=== PATIENT | female | born 1945 | race Caucasian/White ===

== ENCOUNTER → 2016-12-22 | Outpatient (CLI) | payer MEDICARE ==
[~2016-12-22] MED LIST: AMIO200T PO; AMLO10TA2 PO; ATEN50TA2 PO; DIGO0.12 PO; ELIQ5TAB PO; FURO20TA2 PO; FURO40TA2 PO; LASI20TA PO; LATA5OPD OU; LISI-542 PO; LOPR1TAB7 PO; LOTR10CA PO; OMEP20CA3 PO; POTA10CA PO; PRAV40TA2 PO; SIMV20TA2 PO; VITA100072 PO; VITMTA PO
--- NOTE | 2016-12-22 12:05 | REPMRS ---
Patient History The patient states she has not had a clinical breast exam in over a year. Family history of breast cancer in paternal cousin under age 50. Took hormonal contraceptives for 5 years. Digital Woman Screen Mammo: December 22, 2016 - Exam #: [id number] Bilateral CC and MLO view(s) were taken. Technologist: Mariangel Suggs, Technologist Prior study comparison: November 22, 2015, digital woman screen mammo performed at [facility] to [facility]. November 16, 2014, digital woman screen mammo performed at [facility] to [facility]. FINDINGS: There are scattered fibroglandular densities. There has been no change in the appearance of the mammogram from the prior studies. There is a mild amount of residual fibroglandular tissue which is fairly symmetric. There is no interval development of dominant mass, architectural distortion, or clustered microcalcification suggestive of malignancy. ASSESSMENT: BI-RADS/ACR category 1 mammogram. Negative. Recommendation Routine screening mammogram in 1 year (for women over age 40). This mammogram was interpreted with the aid of an FDA-approved computer-aided dectection system. Electronically Signed By: Jovan Morillo MD 12/22/16 [id number]
== END ==
LOC: M WHC 10:13
PROVIDERS: ATTEND Physician Assistant
DX: Z12.31 Encounter for screening mammogram for malignant neoplasm of breast (principal)

== ENCOUNTER 2017-01-02 06:29 | Day surgery (SDC) | payer MEDICARE ==
[~2017-01-02] VITALS: Ht 167.6 cm; Wt 64.4 kg
[2017-01-02] MEDS ORDERED: LR 1,000 ML IV SCH (06:45)
[2017-01-02] MEDS ORDERED: LIDOCAINE 2% INJ 100 MG/5 ML SDV (FOR ANES.) As Ordered ONE (07:19)
[2017-01-02] MEDS ORDERED: PROPOFOL 200 MG/20 ML VIAL As Ordered ONE (07:19)
[2017-01-02] MEDS ORDERED: LIDOCAINE 2% INJ 100 MG/5 ML SYRINGE As Ordered ONE (10:06)
[2017-01-02] MEDS ORDERED: PROPOFOL 500 MG/50 ML VIAL As Ordered ONE (10:06)
[2017-01-02] MEDS ORDERED: ePHEDrine SULFATE 25 MG/5 ML(5MG/ML) SYRINGE As Ordered ONE (10:23)
--- NOTE | 2017-01-02 10:31 | ROOR ---
Patient Name: Maria Antonia Gonzalez Procedure Date: 01/02/2017 9:58 AM Date of : 1945 Age: 71 Room: [facility] Gender: Female Note Status: Finalized Procedure: Colonoscopy Indications: Screening for colorectal malignant neoplasm, Last colonoscopy 10 years ago Providers: Rolly Aldana MD Referring MD: Elena GIEMNEZ DO Requesting Provider: Medicines: Monitored Anesthesia Care Complications: No immediate complications. Procedure: Pre-Anesthesia Assessment: - Prior to the procedure, a History and Physical was performed, and patient medications and allergies were reviewed. The patient is competent. The risks and benefits of the procedure and the sedation options and risks were discussed with the patient. All questions were answered and informed consent was obtained. Patient identification and proposed procedure were verified by the physician, the nurse and the anesthesiologist in the procedure room. Mental Status Examination: alert and oriented. Airway Examination: normal oropharyngeal airway and neck mobility. CV Examination: regular rate and rhythm. Prophylactic Antibiotics: The patient does not require prophylactic antibiotics. Prior Anticoagulants: The patient has taken no previous anticoagulant or antiplatelet agents. ASA Grade Assessment: III - A patient with severe systemic disease. After reviewing the risks and benefits, the patient was deemed in satisfactory condition to undergo the procedure. The anesthesia plan was to use monitored anesthesia care (MAC). Immediately prior to administration of medications, the patient was re-assessed for adequacy to receive sedatives. The heart rate, respiratory rate, oxygen saturations, blood pressure, adequacy of pulmonary ventilation, and response to care were monitored throughout the procedure. The physical status of the patient was re-assessed after the procedure. The Colonoscope was introduced through the anus and advanced to the cecum, identified by appendiceal orifice and ileocecal valve. The colonoscopy was performed without difficulty. The patient tolerated the procedure well. The quality of the bowel preparation was excellent. Findings: The perianal and digital rectal examinations were normal. A 4 mm polyp was found in the hepatic flexure. The polyp was sessile. The polyp was removed with a cold snare. Resection and retrieval were complete. A 3 mm polyp was found in the rectum. The polyp was sessile. The polyp was removed with a cold snare. Resection and retrieval were complete. Impression: - One 4 mm polyp at the hepatic flexure, removed with a cold snare. Resected and retrieved. - One 3 mm polyp in the rectum, removed with a cold snare. Resected and retrieved. Recommendation: - Await pathology results. - Discharge patient to home. - Resume previous diet. - Resume Eliquis (apixaban) at prior dose tomorrow. Rolly Aldana MD 01/02/2017 10:30:56 AM Number of Addenda: 0 Note Initiated On: 01/02/2017 9:58 AM Estimated Blood Loss: Estimated blood loss: none.
[2017-01-02 10:51] VITALS: BP 118/54
== END 2017-01-02 11:18 | disposition home or self-care (01) ==
LOC: M OPP 06:29
PROVIDERS: ATTEND Surgery
DX: Z12.11 Encounter for screening for malignant neoplasm of colon (principal); D12.3 Benign neoplasm of transverse colon; K62.1 Rectal polyp; I10 Essential (primary) hypertension; E78.00 Pure hypercholesterolemia, unspecified; I48.91 Unspecified atrial fibrillation; K21.9 Gastro-esophageal reflux disease without esophagitis; Z79.01 Long term (current) use of anticoagulants; Z79.899 Other long term (current) drug therapy

== ENCOUNTER → 2018-01-02 | Outpatient (CLI) | payer MEDICARE | LOC: M WHC 09:34 | DX: R92.2 Inconclusive mammogram (principal) | CPT/HCPCS: 77067 ==

== ENCOUNTER → 2018-01-25 | Outpatient (CLI) | payer MEDICARE | LOC: M RAD 12:45 | DX: R92.8 Other abnormal and inconclusive findings on diagnostic imaging of breast (principal) | CPT/HCPCS: 77065 ==

== ENCOUNTER → 2018-02-15 | Outpatient (CLI) | payer MEDICARE ==
[~2018-02-15] MED LIST changes: +ALPH0.156 OU; -AMLO10TA2 PO; +AMLO10TA5 PO; +ASCO25TA PO; +FLEC50HA PO; +KLOR10TA76 PO; -LASI20TA PO; +LASI20TA3 PO; +LIDOCAINE 1% MDV 20ML VIAL As Ordered ONE; +METO25TA4 PO; -POTA10CA PO; +VITA200015 PO; +XALA0.007 OU
--- NOTE | 2018-02-15 13:27 | REP ---
Digital diagnostic unilateral left breast mammography: CAD. Two views. History: Marker clip placement views. The patient is status post stereotactic needle biopsy procedure. Comparison mammography January 02, 2018 and January 25, 2018. Findings: CC and true MLO views demonstrate that the needle biopsy marker clip is in good position. Impression: Marker clip in good position. This mammogram was interpreted with the aid of an FDA-approved computer-aided detection system. Electronically Signed by Pa Roblero MD 02/15/2018 04:55 P
--- NOTE | 2018-02-15 17:13 | REP ---
STEREOTACTIC LEFT BREAST BIOPSY The procedure was performed under the direct supervision of Dr. Roblero The patient has a history of 6 x 5 mm nodule in the left breast centrally seen on a previous mammogram dated 01/25/2018. The risks and benefits of the procedure were explained to the patient and informed consent was obtained. A craniocaudal approach was utilized. The nodule was localized using stereotactic mammographic guidance. 1% Xylocaine was used as a local anesthetic. An 8 gauge, suction assisted Mammotome needle was inserted and 6 core biopsy samples were obtained. A marker clip was placed at the biopsy site. The patient tolerated the procedure well and there were no immediate complications. After the appropriate amount of monitored convalescence, the patient was discharged from the department. Reviewed by FRIDA Fagan 02/15/2018 03:27 P Electronically Signed by Pa Roblero MD 02/15/2018 05:04 P
== END ==
LOC: M RADPRO 11:28
PROVIDERS: ATTEND Surgery
DX: N60.32 Fibrosclerosis of left breast (principal); N64.89 Other specified disorders of breast; Z79.899 Other long term (current) drug therapy

== ENCOUNTER 2018-04-02 11:13 | Day surgery (SDC) | payer MEDICARE ==
[~2018-04-02] VITALS: Ht 162.6 cm; Wt 64.1 kg
[~2018-04-02 11:13] MED LIST changes: -ASCO25TA PO; -LIDOCAINE 1% MDV 20ML VIAL As Ordered ONE
[2018-04-02] MEDS ORDERED: LR 1,000 ML IV ONE (11:30)
[2018-04-02] MEDS ORDERED: ceFAZolin SOD 1 GM in D5W MINI-BAG PLUS 50 ML IV ONE (11:30)
[2018-04-02] MEDS ORDERED: MUPIROCIN 2% OINT 22 GM TUBE As Ordered ONE ×2 (13:15→13:18)
[2018-04-02] MEDS ORDERED: ISOVUE-300 61% 50ML VIAL (Q9967) As Ordered ONE (13:16)
[2018-04-02] MEDS ORDERED: BACITRACIN OINT 30GM As Ordered ONE (13:16)
[2018-04-02] MEDS ORDERED: LIDOCAINE 1% SDV INJ 30 ML VIAL As Ordered ONE (13:16)
[2018-04-02 13:32] LABS: ALBUMIN 3.6 GM/DL (3.2-5.2); ALT/SGPT 22 U/L (12-78); BILIRUBIN,TOTAL 0.7 MG/DL (0.2-1.0); BLOOD UREA NITROGEN 29 MG/DL (7-18); CARBON DIOXIDE LEVEL 28 MEQ/L (21-32); CHLORIDE LEVEL 107 MEQ/L (98-107); CREATININE FOR GFR 0.81 MG/DL (0.55-1.30); GLOMERULAR FILTRATION RATE > 60.0 (>39); GLUCOSE, FASTING 106 MG/DL (70-100); POTASSIUM SERUM 4.8 MEQ/L (3.5-5.1); SODIUM LEVEL 141 MEQ/L (136-145); TOTAL PROTEIN 6.6 GM/DL (6.4-8.2)
[2018-04-02] MEDS ORDERED: MIDAZOLAM INJ 2 MG/2 ML VIAL (J2250) As Ordered ONE (14:18)
[2018-04-02] MEDS ORDERED: fentaNYL 100 MCG/2 ML INJECTION (J3010) As Ordered ONE (14:18)
[2018-04-02] MEDS ORDERED: PROPOFOL 500 MG/50 ML VIAL As Ordered ONE (14:18)
[2018-04-02] MEDS ORDERED: ePHEDrine SULFATE 25 MG/5 ML(5MG/ML) SYRINGE As Ordered ONE (14:23)
[2018-04-02] MEDS ORDERED: NEOSPORIN TOP OINT 15GM As Ordered ONE (15:41)
[2018-04-02] MEDS ORDERED: LR 1,000 ML IV SCH (16:30)
--- NOTE | 2018-04-02 16:40 | REP ---
Partial chest x-ray: 11 views. History: Pacemaker insertion. 4 minutes 58 seconds of fluoroscopy time is reported. Findings: A sequence of 11 last image hold fluoroscopic spot radiographs of the chest document dual lead pacemaker placement. Electronically Signed by Pa Roblero MD 04/02/2018 08:41 P
--- NOTE | 2018-04-02 16:42 | RO ---
DATE OF PROCEDURE: 04/02/2018 PREPROCEDURE DIAGNOSIS: Sick sinus syndrome/tachycardia-bradycardia syndrome. POSTPROCEDURE DIAGNOSIS: Sick sinus syndrome/tachycardia-bradycardia syndrome. FINDINGS: Sick sinus syndrome/tachycardia-bradycardia syndrome. PROCEDURE: Implantation of Medtronic dual-chamber pacemaker. SURGEON: Adrian Urena MD BUILDING CLEANER: None. ANESTHESIA: Lidocaine 1% local/monitored anesthetic care. No specimens. Estimated blood loss: Less than 5 mL. No blood products replaced. No drains. No complications. DESCRIPTION OF PROCEDURE: The patient was prepped and draped over the left pectoral region. 3M Ioban film was applied. Lidocaine 1% was used for local anesthetic. A left subclavian venogram was performed using a total volume of 20 mL of a mixture of 5:1 Isovue/normal saline, which was injected via a peripheral vein in the left upper vein. This was used in real-time under fluoroscopic visualization to obtain percutaneous venous access with a micropuncture needle into the left subclavian vein. This was then guidewire exchanged for a guidewire that came with one of the 7-Malagasy sheaths. Next, an incision was made with a PEAK PlasmaBlade approximately 2-1/2 inches in length, 1 cm below the skin entry site of the guidewire. This was then used to dissect down through the fatty layer and the fibrous Waleska's fascia. The pacemaker pocket was then formed in a caudal direction using blunt dissection using two fingers to separate the prepectoral fascia from the Waleska's fascia. Next, the guidewire was pulled through the skin into the incision site. Next, I took a separate micropuncture needle and obtained venous access using the first guidewire as a fluoroscopic marker to obtain a separate venipuncture into the left subclavian vein at the level of the pectoral muscle. This was guidewire exchanged for a guidewire that came with the other 7-Malagasy sheath. Next, the 7-Malagasy sheath with introducer was placed over the more lateral of the guidewires and was used for vein access for the right ventricle lead, which was placed under fluoroscopic guidance into the right ventricle apex position. The first position tried with the helix extended in the right ventricle apex position was working adequately but had a low lead impedance of around 300 ohms, and, therefore, I was concerned about how well the lead was fixated. I, therefore, made the decision to retract the helix and try a different spot at the right ventricle apex, which was successful and secured with a total of 10 turns. This position was anatomically and electrically satisfactory and no diaphragm stimulation could be palpated on either side of the diaphragm at 10 volts high output pacing. The sheath was removed, and the tie-down sleeve was advanced to the pectoral muscle, and the lead was secured using two individual sutures to secure the tie-down sleeve to the pectoral muscle using #0 Ethibond suture material. Next, another 7-Malagasy sheath with introducer was placed over the more medial of the guidewires and was used for vein access for the right atrial lead. The right atrial lead was placed into the right atrial appendage position with the assistance of a preformed J-stylet and secured with a total of 10 turns. This position was found to electrically and anatomically satisfactory and no diaphragm stimulation could be palpated on either side of the diaphragm at 10 volts high output pacing. The sheath was removed, and the atrial lead was secured to the pectoral muscle using the supplied tie-down sleeve using two individual sutures consisting of #0 Ethibond. Next, another #0 Ethibond suture was used to the pectoral muscle to serve as the tie-down for the pacemaker pulse generator. The terminal pins of the ventricle and atrial leads were plugged into their respective ports of the header of the pacemaker and each one was secured by tightening the set screws with the hex screwdriver. The excess lead material was then coiled underneath the pacemaker pulse generator and placed along with the pacemaker pulse generator into the pocket with the excess lead material below and pacemaker pulse generator on top. The pacemaker pulse generator was then secured to the pectoral muscle using the previously placed #0 Ethibond suture. The deep layer was closed using individual sutures consisting of #2-0 Vicryl. A few additional #3-0 Vicryl sutures were used to help approximate the more superficial layer. The skin was then closed using becky. The patient tolerated the procedure well without any immediate complications. The pacemaker pulse generator implanted was a [employer] Jennifer XT DR DANUTA Canchola with model W1DR01 with serial number [id number]. The right atrial lead implanted was a Medtronic model 4076-45 with serial number [id number]. Final testing in the operating room for the right atrial lead in bipolar configuration showed a capture threshold of 0.7 volts at 0.5 ms with lead impedance of 551 ohms and R wave amplitude of 4.5 mV and slew rate of 0.8 volts per second. The right ventricle lead implanted was a [employer], model 4076-52 cm with serial number [id number]. Final testing in the operating room with the pulse analyzer in bipolar configuration for the right ventricle lead showed capture threshold of 0.3 volts at 0.5 milliseconds with lead impedance of 707 ohms and R wave amplitude of 5.7 mV and slew rate of 1.7 volts per second.
[2018-04-02 16:55] VITALS: BP 124/68
--- NOTE | 2018-04-02 16:58 | REP ---
Chest one-view HISTORY: Post pacemaker insertion Comparison: 07/29/2015 The lungs are clear. The heart is normal in size. The pulmonary vasculature is normal in appearance. A cardiac pacemaker is present. Impression: No acute disease. Electronically Signed by Cash Skinner MD 04/02/2018 04:50 P
[2018-04-02 17:25] VITALS: BP 154/78
[2018-04-02] MEDS ORDERED: SLF 3 ML SYR IV PRN (17:30)
[2018-04-02 17:54] VITALS: BP 125/90
[2018-04-02 18:55] VITALS: BP 148/72
[2018-04-02 19:55] VITALS: BP 135/62
[2018-04-02 21:00] VITALS: BP 144/70
[2018-04-02] MEDS ORDERED: LATANOPROST 0.005% OPHTH SOLN 2.5 ML OU SCH (21:00)
[2018-04-02] MEDS ORDERED: PRAVASTATIN 20 MG TAB PO SCH (21:00)
[2018-04-02] MEDS: ACETAMINOPHEN TAB 650MG DOSE (2X325MG) PO PRN (21:10)
[2018-04-02] MEDS: METOPROLOL TART 25 MG TABLET PO SCH (21:11)
[2018-04-02] MEDS: FLECAINIDE 50MG TABLET PO SCH (21:11)
[2018-04-02] MEDS: ASCORBIC ACID 250 MG TAB PO SCH (21:11)
[2018-04-02] MEDS: SLF 3 ML SYR IV SCH (21:11)
[2018-04-02] MEDS: BRIMONIDINE 0.1% OPHTH SOLN 5 ML OU SCH (21:45)
[2018-04-03] VITALS: BP 147/72
[2018-04-03] MEDS: ACETAMINOPHEN TAB 650MG DOSE (2X325MG) PO PRN ×2 (01:00→05:35)
[2018-04-03 04:00] VITALS: BP 162/80
[2018-04-03] MEDS: SLF 3 ML SYR IV SCH (05:07)
[2018-04-03 08:00] VITALS: BP 158/78
--- NOTE | 2018-04-03 08:39 | ECGEPIP ---
Stationary ECG Study [facility] Test Date: 2018-04-02 Pat Name: MEMO ALEXANDER Department: Room: - Gender: F Tromper: SIMEON : 1945 Requested By: Adrian Urena Order Number: [id number] Reading MD: Inderjit Lee Measurements Intervals [place] Rate: 73 P: 121 MT: 223 QRS: 38 QRSD: 97 T: 51 QT: 410 QTc: 453 Interpretive Statements ELECTRONIC ATRIAL PACEMAKER INCOMPLETE RIGHT BUNDLE BRANCH BLOCK ABNORMAL RHYTHM ECG SINCE 08/03/15 PATIENT IS NO LONGER IN ATRIAL FINBRILLATION AND EVIDENCE FOR PACEMAKER IS NEW Electronically Signed On 04-03-2018 8:39:13 EST by Inderjit Lee
--- NOTE | 2018-04-03 08:43 | REP ---
Chest two views HISTORY: Pacemaker insertion Comparison: 04/02/2018 Linear density is present in the left lower lobe consistent with atelectasis or scar. The right lung is clear. The heart is normal in size. The pulmonary vasculature is normal in appearance. The bony structure is intact. A cardiac pacemaker is present. IMPRESSION: Left lower lobe atelectasis or scar. Electronically Signed by Cash Skinner MD 04/03/2018 08:34 A
[2018-04-03] MEDS ORDERED: LISINOPRIL 5 MG TAB PO SCH (09:00)
[2018-04-03] MEDS ORDERED: FUROSEMIDE 20 MG TAB PO SCH (09:00)
[2018-04-03] MEDS ORDERED: VITAMIN D 1,000 INTERNATIONAL UNITS TABLET PO SCH (09:00)
[2018-04-03 09:07] VITALS: BP 158/78
[2018-04-03] MEDS: ASCORBIC ACID 250 MG TAB PO SCH (09:07)
[2018-04-03] MEDS: METOPROLOL TART 25 MG TABLET PO SCH (09:08)
[2018-04-03] MEDS: BRIMONIDINE 0.1% OPHTH SOLN 5 ML OU SCH (09:08)
[2018-04-03] MEDS: FLECAINIDE 50MG TABLET PO SCH (09:15)
[2018-04-03 11:47] VITALS: BP 134/73
[2018-04-03] MEDS ORDERED: ASCO25TA PO (14:21)
[2018-04-03] MEDS ORDERED: APIXABAN 5 MG TAB (ELIQUIS) PO SCH (21:00)
[2018-04-04] MEDS ORDERED: FLUBLOK(EGG FREE)(QUAD)INFLUENZA VACC 0.5ML SYRINGE (90682)18YRS&OLDER IM ONE (09:00)
== END 2018-04-03 15:30 | disposition home or self-care (01) ==
LOC: M SDC 11:13 → M PCU 16:54 → M SDC 04-03 15:30
PROVIDERS: ATTEND Internal Medicine Cardiovascular Disease
DX: I49.5 Sick sinus syndrome (principal); I48.0 Paroxysmal atrial fibrillation; R94.31 Abnormal electrocardiogram [ECG] [EKG]; K21.9 Gastro-esophageal reflux disease without esophagitis; Z79.899 Other long term (current) drug therapy; Z79.01 Long term (current) use of anticoagulants; Z98.51 Tubal ligation status; Z90.710 Acquired absence of both cervix and uterus
CPT/HCPCS: 33208; 36415; 71045; 71046; 76000; 80053; 93005; C1785; C1898; J0690; J2250; J3010; Q9967

== ENCOUNTER → 2018-04-26 | Outpatient (CLI) | payer MEDICARE ==
[~2018-04-26] MED LIST changes: +ASCO25TA PO
--- NOTE | 2018-04-29 13:39 | DEXA ---
AP SPINE L1 - L4 1.320 1.0 2.8 LT FEMUR TOTAL 0.948 -0.5 1.2 LT NECK 0.958 -0.6 1.3 RT FEMUR TOTAL 0.891 -0.9 2.8 RT NECK 0.913 -0.9 1.0 TOTAL BODY TOTAL OTHER COMMENTS: Normal bone densitometry of the spine and hips. The density of the spine has increased 1.2% since the initial exam on 08/25/2008. The spine density has increased 1.4% since the most recent exam on 10/30/2012. The density of the left hip has decreased 3.5% since the initial exam on 08/25/2008. The density of the left hip has decreased 4.8% since the most recent exam on 10/30/2012. The density of the right hip has decreased 5.3% since the initial exam on 08/25/2008. The density of the right hip has decreased 7.0% since the most recent exam on 10/30/2012. FOLLOW-UP: Recommendation for the next bone density exam: 5 years. GILSON
== END ==
LOC: M WHC 09:09
PROVIDERS: ATTEND Physician Assistant
DX: M85.88 Other specified disorders of bone density and structure, other site (principal); M85.851 Other specified disorders of bone density and structure, right thigh; M85.852 Other specified disorders of bone density and structure, left thigh

== ENCOUNTER → 2018-12-27 | Outpatient (REF) | payer MEDICARE ==
[~2018-12-27] MED LIST changes: -ASCO25TA PO; +LATA0.0013 OU; -LATA5OPD OU; -OMEP20CA3 PO; +OMEP20CA4 PO; +VITA100018 PO; -VITA100072 PO; +VITA1TAB23 PO
== END ==
LOC: M LAB REF 10:26
PROVIDERS: ATTEND Family Medicine
DX: L02.212 Cutaneous abscess of back [any part, except buttock and flank] (principal)

== ENCOUNTER → 2020-04-30 | Outpatient (CLI) | payer MEDICARE ==
[~2020-04-30] MED LIST changes: -AMIO200T PO; +AMIO200T3 PO; -AMLO10TA5 PO; +AMLO1TAB25 PO; +ASCO250T20 PO; -LISI-542 PO; +LISI-898 PO; +OMEP1CAP73 PO; -OMEP20CA4 PO; -SIMV20TA2 PO; +SIMV20TA22 PO; -VITA1TAB23 PO
--- NOTE | 2020-04-30 10:55 | REPMRS ---
Patient History The patient states she has not had a clinical breast exam in over a year. Family history of breast cancer under age 50 in paternal cousin. Benign stereotatic loc for ea lesion of the left breast, February 15, 2018. Took hormonal contraceptives for 5 years. 3D TOMOSYNTHESIS WAS PERFORMED. The Anais Foster lifetime risk for breast cancer is 3.8%. Volpara breast density b. Digital Woman Screen Mammo: April 30, 2020 - Exam #: [id number] Bilateral CC and MLO view(s) were taken. Technologist: Mariangel Suggs, Technologist Prior study comparison: January 25, 2018, left breast digital mammo diagnostic unilateral, performed at [facility]. January 02, 2018, bilateral digital woman screen mammo performed at [facility]. FINDINGS: There are scattered fibroglandular densities. There is a fairly symmetric fibroglandular pattern in both breasts. There has been no interval development of masses, areas of architectural distortion or clusters of microcalcifications typical of malignancy. Since the prior exam the patient has had a benign biopsy in the lateral left breast. A biopsy clip is seen at the site of the prior nodule. Assessment: BI-RADS/ACR category 2 mammogram. Benign Findings. Recommendation Routine screening mammogram of both breasts in 1 year (for women over age 40). This mammogram was interpreted with the aid of an FDA-approved computer-aided dectection system. Electronically Signed By: Jovan Morillo MD 04/30/20 0432
== END ==
LOC: M WHC 09:48
PROVIDERS: ATTEND Family Medicine
DX: Z12.31 Encounter for screening mammogram for malignant neoplasm of breast (principal)

== ENCOUNTER → 2021-03-18 | Outpatient (CLI) | payer MEDICARE ==
[~2021-03-18] MED LIST changes: -AMIO200T3 PO; +AMIO200T49 PO; -KLOR10TA76 PO; -LISI-898 PO; +LISI5TAB11 PO; +POTA-136 PO
== END ==
LOC: M RAD 10:33
PROVIDERS: ATTEND Nurse Practitioner Family
DX: I65.23 Occlusion and stenosis of bilateral carotid arteries (principal)

== ENCOUNTER → 2021-05-24 | Outpatient (CLI) | payer MEDICARE ==
[~2021-05-24] MED LIST changes: +ISOVUE-370 76% 100ML VIAL As Ordered ONE
== END ==
LOC: M RAD 14:07
PROVIDERS: ATTEND Nurse Practitioner Adult Health
DX: R22.1 Localized swelling, mass and lump, neck (principal)
CPT/HCPCS: 70491; Q9967

== ENCOUNTER → 2021-06-17 | Outpatient (CLI) | payer MEDICARE ==
[~2021-06-17] MED LIST changes: -ISOVUE-370 76% 100ML VIAL As Ordered ONE
== END ==
LOC: M WHC 08:02
PROVIDERS: ATTEND Nurse Practitioner Adult Health
DX: Z12.31 Encounter for screening mammogram for malignant neoplasm of breast (principal); Z80.3 Family history of malignant neoplasm of breast

== ENCOUNTER → 2022-07-27 | Outpatient (CLI) | payer MEDICARE ==
[2022-07-27 13:20] LABS: BASO # 0.1 10^3/uL (0.0-0.2); BASO % 1.3 % (0.0-1.0); EOS # 0.2 10^3/uL (0.0-0.5); EOS % 1.9 % (0.0-3.0); HEMATOCRIT 48.2 % (36.0-47.0); HEMOGLOBIN 15.5 g/dl (12.0-15.5); LYMPH # 1.1 10^3/uL (1.5-5.0); LYMPH % 12.8 % (24.0-44.0); MEAN CORPUSCULAR HEMOGLOBIN 31.3 pg (27.0-33.0); MEAN CORPUSCULAR HGB CONC 32.2 g/dl (32.0-36.5); MEAN CORPUSCULAR VOLUME 97.4 fl (80.0-96.0); MONO # 0.9 10^3/uL (0.0-0.8); MONO % 10.8 % (2.0-8.0); NEUTROPHILS # 6.2 10^3/uL (1.5-8.5); NEUTROPHILS % 72.6 % (36.0-66.0); PLATELET COUNT, AUTOMATED 377 10^3/uL (150-450); RED BLOOD COUNT 4.95 10^6/uL (4.00-5.40); WHITE BLOOD COUNT 8.5 10^3/uL (4.0-10.0)
[2022-07-27 13:27] LABS: ERYTHROCYTE SEDIMENTATION RATE 19 mm/hr (0-30)
[2022-07-27 13:38] LABS: C REACTIVE PROTEIN QUANTITATIV 3.8 MG/DL (<1.0)
[2022-07-27 13:40] LABS: ALBUMIN 3.2 G/DL (3.2-5.2); BILIRUBIN,TOTAL 0.9 MG/DL (0.3-1.2); CALCIUM LEVEL 9.4 MG/DL (8.3-10.6); CREATININE FOR GFR 1.01 MG/DL (0.55-1.30); GLOMERULAR FILTRATION RATE 56.4 (>39); POTASSIUM SERUM 4.3 MMOL/L (3.5-5.1); TOTAL PROTEIN 6.7 G/DL (5.7-8.2)
== END ==
LOC: M PLAIMG 12:15
PROVIDERS: ATTEND Nurse Practitioner Adult Health
DX: J90 Pleural effusion, not elsewhere classified (principal); J98.19 Other pulmonary collapse; R06.02 Shortness of breath

== ENCOUNTER 2022-08-02 16:57 | Inpatient (IN) | payer MEDICARE ==
[~2022-08-02] VITALS: Ht 162.6 cm; Wt 72.6 kg
[~2022-08-02 16:57] MED LIST changes: -AMOX875T2 PO; -BRIM1OPD OU; -FLUT1INH2 INH; -ISOVUE-370 76% 100ML VIAL As Ordered ONE; -METO1TAB32 PO; -METO1TAB33 PO; -PRED20TA PO; -PRED5PAK2 PO; -VITA200021 PO; -VITA250T4 PO
[2022-08-02] MEDS ORDERED: AMOX875T2 PO (17:19)
[2022-08-02] MEDS ORDERED: METO1TAB33 PO (17:19)
[2022-08-02] MEDS ORDERED: PRED5PAK2 PO (17:19)
[2022-08-02] MEDS ORDERED: BRIM1OPD OU (17:19)
[2022-08-02] MEDS ORDERED: METO1TAB32 PO (17:19)
[2022-08-02] MEDS ORDERED: FLUT1INH2 INH (17:19)
[2022-08-02 18:07] LABS: BASO % 0.2 % (0.0-1.0); HEMATOCRIT 53.1 % (36.0-47.0); LYMPH # 0.5 10^3/uL (1.5-5.0); LYMPH % 5.4 % (24.0-44.0); MEAN CORPUSCULAR HEMOGLOBIN 30.5 pg (27.0-33.0); MEAN CORPUSCULAR VOLUME 95.3 fl (80.0-96.0); MONO # 0.3 10^3/uL (0.0-0.8); MONO % 3.3 % (2.0-8.0); NEUTROPHILS % 90.1 % (36.0-66.0); PLATELET COUNT, AUTOMATED 315 10^3/uL (150-450); RED BLOOD COUNT 5.57 10^6/uL (4.00-5.40)
[2022-08-02 18:25] LABS: CK-MB VALUE MASS 1.3 NG/ML (<3.6); INR 1.27; PROTHROMBIN TIME 16.2 SECONDS (12.5-14.5)
[2022-08-02 18:27] LABS: CPK CREATINE PHOSPHOKINASE 28 U/L (34-145); MB/CK RELATIVE INDEX 4.64 (< OR =4)
[2022-08-02 18:30] LABS: ALBUMIN 3.6 G/DL (3.2-5.2); ALKALINE PHOSPHATASE 92 U/L (46-116); ALT/SGPT 34 U/L (7.0-40); AST/SGOT 26 U/L (<34); BILIRUBIN,DIRECT 0.2 MG/DL (<0.4); BILIRUBIN,TOTAL 0.5 MG/DL (0.3-1.2); BLOOD UREA NITROGEN 29 MG/DL (9-23); CALCIUM LEVEL 9.1 MG/DL (8.3-10.6); CARBON DIOXIDE LEVEL 33 MMOL/L (20-31); CHLORIDE LEVEL 99 MMOL/L (98-107); CREATININE FOR GFR 0.89 MG/DL (0.55-1.30); GLOMERULAR FILTRATION RATE > 60.0 (>39); GLUCOSE, FASTING 177 MG/DL (74-106); POTASSIUM SERUM 4.3 MMOL/L (3.5-5.1); RSV AMPLIFICATION NEGATIVE (NEGATIVE); SODIUM LEVEL 138 MMOL/L (136-145); TOTAL PROTEIN 7.1 G/DL (5.7-8.2)
[2022-08-02] MEDS ORDERED: LEVALBUTEROL 1.25MG/3ML NEB SOLN NEB PRN (18:45)
[2022-08-02] MEDS ORDERED: BISACODYL 10MG SUPP PR PRN (18:45)
[2022-08-02] MEDS ORDERED: PERCOCET 5MG/325MG TAB PO PRN ×2 (18:45)
[2022-08-02] MEDS ORDERED: ONDANSETRON 4MG 2ML VIAL IV PRN (18:45)
[2022-08-02] MEDS ORDERED: KCL 20MEQ IN D5/NS 1000ML 1,000 ML IV SCH (19:00)
[2022-08-02] MEDS ORDERED: MED REC IN PROGRESS XX ONE (19:25)
[2022-08-02 19:41] LABS: LDH LACTATE DEHYDROGENASE 274 U/L (120-246)
[2022-08-02] MEDS: LEVALBUTEROL 1.25MG/3ML NEB SOLN NEB SCH (20:00)
[2022-08-02] MEDS ORDERED: VITA250T4 PO (20:06)
[2022-08-02] MEDS ORDERED: PRED20TA PO (20:06)
[2022-08-02] MEDS ORDERED: VITA200021 PO (20:06)
[2022-08-02] MEDS ORDERED: HOME MED LIST COMPLETE! XX SCH (20:10)
[2022-08-02 20:16] LABS: ABG BASE EXCESS 6.8 (-2.0-2.0); ABG HCO3 31.2 MMOL/L (22.0-26.0); ABG O2 SATURATION 95.9 % (95.0-99.0); ABG PARTIAL PRESSURE CO2 43.1 mmHg (35.0-45.0); ABG PARTIAL PRESSURE O2 75.2 mmHg (75.0-100.0); ABG STANDARD HCO3 30.6 MMOL/L. (22.0-26.0); ABG TOTAL CO2 32.6 MMOL/L (23.0-31.0); ABG pH (ARTERIAL) 7.478 UNITS (7.350-7.450)
[2022-08-02] MEDS ORDERED: LIDOCAINE 1% MDV 20ML VIAL SC PRN (20:35)
[2022-08-02] MEDS ORDERED: flumazeniL 0.5MG/5ML VIAL IV PRN (20:35)
[2022-08-02] MEDS ORDERED: MIDAZOLAM 5MG 5ML VIAL (FOR CHEST TUBE INSERTIONS) IV PRN (20:35)
[2022-08-02 20:39] VITALS: BP 182/92; TEMP 97.8; O2SAT 95
[2022-08-02 20:53] LABS: BASO % 0.3 % (0.0-1.0); EOS % 0.2 % (0.0-3.0); HEMATOCRIT 49.3 % (36.0-47.0); HEMOGLOBIN 16.2 g/dl (12.0-15.5); LYMPH # 0.7 10^3/uL (1.5-5.0); LYMPH % 7.3 % (24.0-44.0); MEAN CORPUSCULAR HEMOGLOBIN 30.6 pg (27.0-33.0); MEAN CORPUSCULAR HGB CONC 32.9 g/dl (32.0-36.5); MONO # 0.5 10^3/uL (0.0-0.8); MONO % 4.9 % (2.0-8.0); NEUTROPHILS # 8.6 10^3/uL (1.5-8.5); NEUTROPHILS % 86.5 % (36.0-66.0); PLATELET COUNT, AUTOMATED 310 10^3/uL (150-450)
[2022-08-02] MEDS ORDERED: hydrALAZINE 20MG/ML 1ML VIAL IV PRN (20:55)
[2022-08-02] MEDS: DOCUSATE SODIUM 100MG CAPSULE PO SCH (21:00)
[2022-08-02] MEDS: METOPROLOL SUCC *XL* 25MG TAB (TopROL *XL*) PO SCH (22:22)
[2022-08-02] MEDS: FLECAINIDE 50MG TABLET PO SCH (23:43)
[2022-08-02] MEDS: LATANOPROST 0.005% OPHTH SOLN 2.5 ML OU SCH (23:44)
[2022-08-02] MEDS: BRIMONIDINE 0.1% OPHTH SOLN 5ML OU SCH (23:44)
[2022-08-02 23:59] VITALS: BP 194/92; TEMP 97.3; O2SAT 93
[2022-08-03] VITALS (7 sets, daily range): BP systolic 124–182; BP diastolic 62–94; TEMP 96.6–98.1; O2SAT 91–100
[2022-08-03] MEDS: LEVALBUTEROL 1.25MG/3ML NEB SOLN NEB SCH ×4 (02:24→20:08)
[2022-08-03] MEDS ORDERED: amLODIPine 5 MG TAB PO ONE (03:45)
[2022-08-03 05:10] LABS: BASO % 0.4 % (0.0-1.0); EOS # 0.1 10^3/uL (0.0-0.5); HEMOGLOBIN 15.6 g/dl (12.0-15.5); LYMPH % 11.2 % (24.0-44.0); MEAN CORPUSCULAR HEMOGLOBIN 30.7 pg (27.0-33.0); MEAN CORPUSCULAR HGB CONC 33.2 g/dl (32.0-36.5); MEAN CORPUSCULAR VOLUME 92.5 fl (80.0-96.0); MONO # 0.8 10^3/uL (0.0-0.8); MONO % 8.5 % (2.0-8.0); NEUTROPHILS # 7.1 10^3/uL (1.5-8.5); NEUTROPHILS % 78.1 % (36.0-66.0); PLATELET COUNT, AUTOMATED 255 10^3/uL (150-450); RED BLOOD COUNT 5.08 10^6/uL (4.00-5.40); WHITE BLOOD COUNT 9.1 10^3/uL (4.0-10.0)
[2022-08-03 05:47] LABS: BLOOD UREA NITROGEN 23 MG/DL (9-23); CALCIUM LEVEL 8.7 MG/DL (8.3-10.6); CARBON DIOXIDE LEVEL 31 MMOL/L (20-31); CHLORIDE LEVEL 104 MMOL/L (98-107); CREATININE FOR GFR 0.72 MG/DL (0.55-1.30); GLOMERULAR FILTRATION RATE > 60.0 (>39); GLUCOSE, FASTING 86 MG/DL (74-106); POTASSIUM SERUM 3.9 MMOL/L (3.5-5.1); SODIUM LEVEL 140 MMOL/L (136-145)
[2022-08-03] MEDS: MOM 30ML SUSPENSION UDC PO SCH (09:00)
[2022-08-03] MEDS: DOCUSATE SODIUM 100MG CAPSULE PO SCH ×3 (09:00→20:11)
[2022-08-03 09:32] LABS: LDH LACTATE DEHYDROGENASE 324 U/L (120-246)
[2022-08-03] MEDS: BRIMONIDINE 0.1% OPHTH SOLN 5ML OU SCH ×2 (11:17→20:09)
[2022-08-03] MEDS: PRAVASTATIN 20 MG TAB PO SCH (11:17)
[2022-08-03] MEDS: PANTOPRAZOLE 40MG TAB (PROTONIX) PO SCH (11:17)
[2022-08-03] MEDS: METOPROLOL SUCC (TopROL XL) 100MG *XL* TAB PO SCH (11:18)
[2022-08-03] MEDS: lisinopriL 5 MG TAB PO SCH (11:18)
[2022-08-03] MEDS: FLECAINIDE 50MG TABLET PO SCH ×2 (11:18→20:08)
[2022-08-03 11:47] LABS: SOURCE, BODY FLUID pH PLEURAL
[2022-08-03 11:56] LABS: APPEARANCE, BODY FLUID HAZY (CLEAR); PLEURAL FL COLOR YELLOW (COLORLESS); SOURCE, BODY FLUID PLEURAL
[2022-08-03 12:32] LABS: SOURCE, BODY FLUID ALBUMIN PLEURAL
[2022-08-03 12:37] LABS: SOURCE, BODY FLUID GLUCOSE PLEURAL; SOURCE, BODY FLUID TRIG PLEURAL; TRIGLYCERIDE, BODY FLUID 22 MG/DL (NOT ESTABLISHED)
[2022-08-03 12:38] LABS: LDH, BODY FLUID 127 U/L (NOT ESTABLISHED); SOURCE, BODY FLUID LDH PLEURAL
[2022-08-03 12:39] LABS: AMYLASE, BODY FLUID 30 U/L (NOT ESTABLISHED); CHOLESTEROL, BODY FLUID 50 MG/DL (NOT ESTABLISHED); SOURCE, BODY FLUID AMYLASE PLEURAL; SOURCE, BODY FLUID CHOL PLEURAL; SOURCE, BODY FLUID TOT PROTEIN PLEURAL; TOTAL PROTEIN, BODY FLUID 2.8 G/DL (NOT ESTABLISHED)
[2022-08-03] MEDS: METOPROLOL SUCC *XL* 25MG TAB (TopROL *XL*) PO SCH (20:09)
[2022-08-03] MEDS: LATANOPROST 0.005% OPHTH SOLN 2.5 ML OU SCH (20:10)
[2022-08-03] MEDS: ACETAMINOPHEN TAB 650MG DOSE (2X325MG) PO PRN (20:13)
[2022-08-04] VITALS (22 sets, daily range): BP systolic 94–154; BP diastolic 50–88; TEMP 96.1–97.7; O2SAT 87–97
[2022-08-04] MEDS: LEVALBUTEROL 1.25MG/3ML NEB SOLN NEB SCH ×4 (01:37→19:41)
[2022-08-04] MEDS: ACETAMINOPHEN TAB 650MG DOSE (2X325MG) PO PRN ×3 (01:56→12:28)
[2022-08-04 05:43] LABS: BASO # 0.1 10^3/uL (0.0-0.2); BASO % 0.7 % (0.0-1.0); EOS # 0.2 10^3/uL (0.0-0.5); EOS % 2.2 % (0.0-3.0); HEMATOCRIT 50.3 % (36.0-47.0); LYMPH # 1.2 10^3/uL (1.5-5.0); LYMPH % 13.1 % (24.0-44.0); MEAN CORPUSCULAR HEMOGLOBIN 30.2 pg (27.0-33.0); MEAN CORPUSCULAR HGB CONC 31.8 g/dl (32.0-36.5); MEAN CORPUSCULAR VOLUME 95.1 fl (80.0-96.0); MONO # 0.7 10^3/uL (0.0-0.8); MONO % 7.7 % (2.0-8.0); NEUTROPHILS # 6.9 10^3/uL (1.5-8.5); NEUTROPHILS % 75.3 % (36.0-66.0); PLATELET COUNT, AUTOMATED 246 10^3/uL (150-450); RED BLOOD COUNT 5.29 10^6/uL (4.00-5.40); WHITE BLOOD COUNT 9.2 10^3/uL (4.0-10.0)
[2022-08-04 06:16] LABS: CALCIUM LEVEL 8.8 MG/DL (8.3-10.6); CREATININE FOR GFR 0.98 MG/DL (0.55-1.30); GLOMERULAR FILTRATION RATE 58.4 (>39); POTASSIUM SERUM 4.1 MMOL/L (3.5-5.1)
[2022-08-04] MEDS: DOCUSATE SODIUM 100MG CAPSULE PO SCH ×2 (09:00→20:39)
[2022-08-04] MEDS: MOM 30ML SUSPENSION UDC PO SCH (09:00)
[2022-08-04] MEDS: PANTOPRAZOLE 40MG TAB (PROTONIX) PO SCH (09:24)
[2022-08-04] MEDS: METOPROLOL SUCC (TopROL XL) 100MG *XL* TAB PO SCH (09:26)
[2022-08-04] MEDS: PRAVASTATIN 20 MG TAB PO SCH (09:26)
[2022-08-04] MEDS: FLECAINIDE 50MG TABLET PO SCH ×2 (09:26→20:42)
[2022-08-04] MEDS: lisinopriL 5 MG TAB PO SCH (09:26)
[2022-08-04] MEDS: BRIMONIDINE 0.1% OPHTH SOLN 5ML OU SCH ×2 (09:27→20:42)
[2022-08-04] MEDS: LATANOPROST 0.005% OPHTH SOLN 2.5 ML OU SCH (20:42)
[2022-08-04] MEDS: METOPROLOL SUCC *XL* 25MG TAB (TopROL *XL*) PO SCH (20:42)
[2022-08-05] VITALS (8 sets, daily range): BP systolic 103–133; BP diastolic 51–61; TEMP 96.5–98.1; O2SAT 79–99
[2022-08-05] MEDS: LEVALBUTEROL 1.25MG/3ML NEB SOLN NEB SCH ×4 (02:53→19:21)
[2022-08-05 05:36] LABS: BASO # 0.1 10^3/uL (0.0-0.2); BASO % 0.9 % (0.0-1.0); EOS # 0.5 10^3/uL (0.0-0.5); EOS % 5.2 % (0.0-3.0); HEMATOCRIT 47.4 % (36.0-47.0); HEMOGLOBIN 15.1 g/dl (12.0-15.5); LYMPH % 11.3 % (24.0-44.0); MEAN CORPUSCULAR HEMOGLOBIN 30.1 pg (27.0-33.0); MEAN CORPUSCULAR HGB CONC 31.9 g/dl (32.0-36.5); MEAN CORPUSCULAR VOLUME 94.6 fl (80.0-96.0); MONO # 0.8 10^3/uL (0.0-0.8); MONO % 8.8 % (2.0-8.0); NEUTROPHILS # 6.6 10^3/uL (1.5-8.5); NEUTROPHILS % 72.3 % (36.0-66.0); PLATELET COUNT, AUTOMATED 255 10^3/uL (150-450); RED BLOOD COUNT 5.01 10^6/uL (4.00-5.40); WHITE BLOOD COUNT 9.2 10^3/uL (4.0-10.0)
[2022-08-05 05:50] LABS: CALCIUM LEVEL 8.3 MG/DL (8.3-10.6); CREATININE FOR GFR 0.96 MG/DL (0.55-1.30); GLOMERULAR FILTRATION RATE 59.8 (>39); POTASSIUM SERUM 4.3 MMOL/L (3.5-5.1)
[2022-08-05] MEDS ORDERED: ISOVUE-370 76% 100ML VIAL As Ordered ONE (07:37)
[2022-08-05] MEDS: MOM 30ML SUSPENSION UDC PO SCH (08:02)
[2022-08-05] MEDS: DOCUSATE SODIUM 100MG CAPSULE PO SCH ×2 (08:02→21:00)
[2022-08-05] MEDS: lisinopriL 5 MG TAB PO SCH (08:09)
[2022-08-05] MEDS: METOPROLOL SUCC (TopROL XL) 100MG *XL* TAB PO SCH (08:09)
[2022-08-05] MEDS: BRIMONIDINE 0.1% OPHTH SOLN 5ML OU SCH ×2 (08:13→20:00)
[2022-08-05] MEDS: FLECAINIDE 50MG TABLET PO SCH ×2 (08:13→20:05)
[2022-08-05] MEDS: APIXABAN 5 MG TAB (ELIQUIS) PO SCH ×2 (08:13→20:01)
[2022-08-05] MEDS: PRAVASTATIN 20 MG TAB PO SCH (08:13)
[2022-08-05] MEDS: PANTOPRAZOLE 40MG TAB (PROTONIX) PO SCH (08:13)
[2022-08-05] MEDS: METOPROLOL SUCC *XL* 25MG TAB (TopROL *XL*) PO SCH (20:01)
[2022-08-05] MEDS: ACETAMINOPHEN TAB 650MG DOSE (2X325MG) PO PRN (20:01)
[2022-08-05] MEDS: LATANOPROST 0.005% OPHTH SOLN 2.5 ML OU SCH (20:05)
[2022-08-06] VITALS (8 sets, daily range): BP systolic 84–134; BP diastolic 50–64; TEMP 96.6–97.8; O2SAT 93–97
[2022-08-06] MEDS: LEVALBUTEROL 1.25MG/3ML NEB SOLN NEB SCH ×4 (01:18→19:48)
[2022-08-06] MEDS ORDERED: METOPROLOL TART 50 MG TAB PO ONE (05:15)
[2022-08-06 05:34] LABS: BASO # 0.1 10^3/uL (0.0-0.2); BASO % 0.7 % (0.0-1.0); EOS # 0.5 10^3/uL (0.0-0.5); EOS % 5.7 % (0.0-3.0); HEMATOCRIT 47.2 % (36.0-47.0); HEMOGLOBIN 15.1 g/dl (12.0-15.5); LYMPH # 1.4 10^3/uL (1.5-5.0); LYMPH % 16.6 % (24.0-44.0); MEAN CORPUSCULAR HEMOGLOBIN 30.9 pg (27.0-33.0); MEAN CORPUSCULAR VOLUME 96.5 fl (80.0-96.0); MONO # 0.9 10^3/uL (0.0-0.8); MONO % 10.7 % (2.0-8.0); NEUTROPHILS # 5.3 10^3/uL (1.5-8.5); NEUTROPHILS % 65.1 % (36.0-66.0); PLATELET COUNT, AUTOMATED 218 10^3/uL (150-450); RED BLOOD COUNT 4.89 10^6/uL (4.00-5.40); WHITE BLOOD COUNT 8.1 10^3/uL (4.0-10.0)
[2022-08-06 06:00] LABS: BLOOD UREA NITROGEN 24 MG/DL (9-23); CALCIUM LEVEL 8.5 MG/DL (8.3-10.6); CARBON DIOXIDE LEVEL 32 MMOL/L (20-31); CHLORIDE LEVEL 105 MMOL/L (98-107); CREATININE FOR GFR 0.92 MG/DL (0.55-1.30); GLOMERULAR FILTRATION RATE > 60.0 (>39); GLUCOSE, FASTING 97 MG/DL (74-106); POTASSIUM SERUM 4.5 MMOL/L (3.5-5.1); SODIUM LEVEL 141 MMOL/L (136-145)
[2022-08-06] MEDS ORDERED: ADVAIR HFA 45/21MCG INHALER INH SCH (08:00)
[2022-08-06] MEDS ORDERED: IPRATROPIUM 0.5MG/ALBUTEROL 2.5MG INH SOL UD 3ML (DUONEB) NEB PRN (08:20)
[2022-08-06] MEDS: cefTRIAXone SOD 1 GM in D5W MINI-BAG PLUS 50 ML IV SCH (08:24)
[2022-08-06] MEDS: PRAVASTATIN 20 MG TAB PO SCH (08:30)
[2022-08-06] MEDS: FLECAINIDE 50MG TABLET PO SCH ×2 (08:30→20:11)
[2022-08-06] MEDS: DOCUSATE SODIUM 100MG CAPSULE PO SCH ×2 (08:30→20:01)
[2022-08-06] MEDS: FUROSEMIDE 20 MG TAB PO SCH (08:30)
[2022-08-06] MEDS: BRIMONIDINE 0.1% OPHTH SOLN 5ML OU SCH ×2 (08:30→20:10)
[2022-08-06] MEDS: APIXABAN 5 MG TAB (ELIQUIS) PO SCH ×2 (08:30→20:11)
[2022-08-06] MEDS: PANTOPRAZOLE 40MG TAB (PROTONIX) PO SCH (08:30)
[2022-08-06] MEDS: lisinopriL 5 MG TAB PO SCH (08:31)
[2022-08-06] MEDS: MOM 30ML SUSPENSION UDC PO SCH (08:31)
[2022-08-06] MEDS: METOPROLOL SUCC (TopROL XL) 100MG *XL* TAB PO SCH (08:35)
[2022-08-06] MEDS: ACETAMINOPHEN TAB 650MG DOSE (2X325MG) PO PRN ×2 (09:58→20:11)
[2022-08-06] MEDS ORDERED: LR 500 ML IV ONE (13:00)
[2022-08-06] MEDS: LATANOPROST 0.005% OPHTH SOLN 2.5 ML OU SCH (20:10)
[2022-08-06] MEDS: METOPROLOL SUCC *XL* 25MG TAB (TopROL *XL*) PO SCH (20:11)
[2022-08-07] VITALS (8 sets, daily range): BP systolic 98–148; BP diastolic 51–70; TEMP 96–98.1; O2SAT 91–94
[2022-08-07] MEDS: LEVALBUTEROL 1.25MG/3ML NEB SOLN NEB SCH ×4 (02:48→19:08)
[2022-08-07 04:20] LABS: BASO # 0.1 10^3/uL (0.0-0.2); BASO % 0.9 % (0.0-1.0); EOS # 0.5 10^3/uL (0.0-0.5); EOS % 6.8 % (0.0-3.0); HEMATOCRIT 44.4 % (36.0-47.0); HEMOGLOBIN 14.5 g/dl (12.0-15.5); LYMPH % 15.7 % (24.0-44.0); MEAN CORPUSCULAR HEMOGLOBIN 30.7 pg (27.0-33.0); MEAN CORPUSCULAR HGB CONC 32.7 g/dl (32.0-36.5); MEAN CORPUSCULAR VOLUME 94.1 fl (80.0-96.0); MONO # 0.7 10^3/uL (0.0-0.8); MONO % 10.8 % (2.0-8.0); NEUTROPHILS # 4.2 10^3/uL (1.5-8.5); NEUTROPHILS % 64.4 % (36.0-66.0); PLATELET COUNT, AUTOMATED 212 10^3/uL (150-450); RED BLOOD COUNT 4.72 10^6/uL (4.00-5.40); WHITE BLOOD COUNT 6.6 10^3/uL (4.0-10.0)
[2022-08-07 04:54] LABS: BLOOD UREA NITROGEN 25 MG/DL (9-23); CALCIUM LEVEL 7.9 MG/DL (8.3-10.6); CARBON DIOXIDE LEVEL 29 MMOL/L (20-31); CHLORIDE LEVEL 105 MMOL/L (98-107); CREATININE FOR GFR 0.86 MG/DL (0.55-1.30); GLOMERULAR FILTRATION RATE > 60.0 (>39); GLUCOSE, FASTING 87 MG/DL (74-106); POTASSIUM SERUM 4.1 MMOL/L (3.5-5.1); SODIUM LEVEL 140 MMOL/L (136-145)
[2022-08-07] MEDS: cefTRIAXone SOD 1 GM in D5W MINI-BAG PLUS 50 ML IV SCH (06:06)
[2022-08-07] MEDS: DOCUSATE SODIUM 100MG CAPSULE PO SCH ×2 (08:38→21:14)
[2022-08-07] MEDS: PRAVASTATIN 20 MG TAB PO SCH (08:39)
[2022-08-07] MEDS: FUROSEMIDE 20 MG TAB PO SCH (08:39)
[2022-08-07] MEDS: APIXABAN 5 MG TAB (ELIQUIS) PO SCH ×2 (08:39→21:14)
[2022-08-07] MEDS: MOM 30ML SUSPENSION UDC PO SCH (08:39)
[2022-08-07] MEDS: METOPROLOL SUCC (TopROL XL) 100MG *XL* TAB PO SCH (08:40)
[2022-08-07] MEDS: PANTOPRAZOLE 40MG TAB (PROTONIX) PO SCH (08:40)
[2022-08-07] MEDS: lisinopriL 5 MG TAB PO SCH (08:40)
[2022-08-07] MEDS: BRIMONIDINE 0.1% OPHTH SOLN 5ML OU SCH ×2 (08:40→21:16)
[2022-08-07] MEDS: FLECAINIDE 50MG TABLET PO SCH ×2 (08:49→21:14)
[2022-08-07] MEDS: AUGMENTIN 500MG TAB PO SCH ×2 (13:10→21:15)
[2022-08-07] MEDS: METOPROLOL SUCC *XL* 25MG TAB (TopROL *XL*) PO SCH (21:00)
[2022-08-07] MEDS: LATANOPROST 0.005% OPHTH SOLN 2.5 ML OU SCH (21:16)
[2022-08-08] MEDS: LEVALBUTEROL 1.25MG/3ML NEB SOLN NEB SCH ×2 (00:13→07:58)
[2022-08-08 04:00] VITALS: BP 129/60; TEMP 96.7; O2SAT 90
[2022-08-08] MEDS: AUGMENTIN 500MG TAB PO SCH (05:26)
[2022-08-08 06:55] LABS: BASO # 0.1 10^3/uL (0.0-0.2); EOS # 0.4 10^3/uL (0.0-0.5); EOS % 5.9 % (0.0-3.0); HEMATOCRIT 48.6 % (36.0-47.0); HEMOGLOBIN 15.6 g/dl (12.0-15.5); LYMPH % 14.1 % (24.0-44.0); MEAN CORPUSCULAR HEMOGLOBIN 30.1 pg (27.0-33.0); MEAN CORPUSCULAR HGB CONC 32.1 g/dl (32.0-36.5); MEAN CORPUSCULAR VOLUME 93.8 fl (80.0-96.0); MONO # 0.6 10^3/uL (0.0-0.8); MONO % 9.2 % (2.0-8.0); NEUTROPHILS # 4.8 10^3/uL (1.5-8.5); NEUTROPHILS % 68.5 % (36.0-66.0); PLATELET COUNT, AUTOMATED 220 10^3/uL (150-450); RED BLOOD COUNT 5.18 10^6/uL (4.00-5.40)
[2022-08-08 07:19] LABS: BLOOD UREA NITROGEN 17 MG/DL (9-23); CALCIUM LEVEL 8.5 MG/DL (8.3-10.6); CARBON DIOXIDE LEVEL 31 MMOL/L (20-31); CHLORIDE LEVEL 105 MMOL/L (98-107); CREATININE FOR GFR 0.81 MG/DL (0.55-1.30); GLOMERULAR FILTRATION RATE > 60.0 (>39); GLUCOSE, FASTING 103 MG/DL (74-106); POTASSIUM SERUM 4.7 MMOL/L (3.5-5.1); SODIUM LEVEL 141 MMOL/L (136-145)
[2022-08-08 07:24] VITALS: O2SAT 92
[2022-08-08 07:30] VITALS: O2SAT 94
[2022-08-08 08:12] VITALS: BP 146/67; TEMP 97.3; O2SAT 96
[2022-08-08] MEDS: DOCUSATE SODIUM 100MG CAPSULE PO SCH (08:36)
[2022-08-08] MEDS: PRAVASTATIN 20 MG TAB PO SCH (08:37)
[2022-08-08] MEDS: MOM 30ML SUSPENSION UDC PO SCH (08:37)
[2022-08-08] MEDS: FUROSEMIDE 20 MG TAB PO SCH (08:37)
[2022-08-08] MEDS: APIXABAN 5 MG TAB (ELIQUIS) PO SCH (08:37)
[2022-08-08 08:38] VITALS: BP 146/67
[2022-08-08] MEDS: BRIMONIDINE 0.1% OPHTH SOLN 5ML OU SCH (08:38)
[2022-08-08] MEDS: FLECAINIDE 50MG TABLET PO SCH (08:38)
[2022-08-08] MEDS: METOPROLOL SUCC (TopROL XL) 100MG *XL* TAB PO SCH (08:38)
[2022-08-08] MEDS: lisinopriL 5 MG TAB PO SCH (08:38)
[2022-08-08] MEDS: PANTOPRAZOLE 40MG TAB (PROTONIX) PO SCH (08:38)
[2022-08-08] MEDS ORDERED: AMOX500T2 PO (10:30)
== END 2022-08-08 12:00 | disposition home or self-care (01) | DRG 186 ==
LOC: M ED 16:57 → M ED INP 18:41 → M PCU 20:40
PROVIDERS: ADMIT Internal Medicine; ATTEND Internal Medicine
PROC: 0W9B30Z Drainage of Left Pleural Cavity with Drainage Device, Percutaneous Approach (ICD-10-PCS; principal; 2022-08-03 15:00)
PROC: B246ZZZ Ultrasonography of Right and Left Heart (ICD-10-PCS; 2022-08-05)
DX: J90 Pleural effusion, not elsewhere classified (principal); J14 Pneumonia due to Hemophilus influenzae; I50.32 Chronic diastolic (congestive) heart failure; I31.39 Other pericardial effusion (noninflammatory); J98.11 Atelectasis; R91.8 Other nonspecific abnormal finding of lung field; I48.91 Unspecified atrial fibrillation; H40.9 Unspecified glaucoma; D75.1 Secondary polycythemia; K21.9 Gastro-esophageal reflux disease without esophagitis; I11.0 Hypertensive heart disease with heart failure; E78.5 Hyperlipidemia, unspecified; I49.5 Sick sinus syndrome; E86.0 Dehydration; Z85.828 Personal history of other malignant neoplasm of skin; Z79.2 Long term (current) use of antibiotics; Z79.01 Long term (current) use of anticoagulants; Z79.52 Long term (current) use of systemic steroids; Z79.899 Other long term (current) drug therapy; Z95.0 Presence of cardiac pacemaker; Z87.891 Personal history of nicotine dependence

== ENCOUNTER → 2022-08-02 | Outpatient (CLI) | payer MEDICARE ==
[~2022-08-02] MED LIST changes: +AMOX875T2 PO; +BRIM1OPD OU; +FLUT1INH2 INH; +ISOVUE-370 76% 100ML VIAL As Ordered ONE; +METO1TAB32 PO; +METO1TAB33 PO; +PRED20TA PO; +PRED5PAK2 PO; +VITA200021 PO; +VITA250T4 PO
== END ==
LOC: M RAD 08:18
PROVIDERS: ATTEND Nurse Practitioner Adult Health
DX: J90 Pleural effusion, not elsewhere classified (principal); R91.8 Other nonspecific abnormal finding of lung field

== ENCOUNTER → 2022-08-16 | Outpatient (CLI) | payer MEDICARE ==
[~2022-08-16] MED LIST changes: +AMOX500T2 PO; +AMOX875T2 PO; +BRIM1OPD OU; +FLUT1INH2 INH; +METO1TAB32 PO; +METO1TAB33 PO; +PRED20TA PO; +PRED5PAK2 PO; +VITA200021 PO; +VITA250T4 PO
== END ==
LOC: M RAD 12:02
PROVIDERS: ATTEND Nurse Practitioner Adult Health
DX: J90 Pleural effusion, not elsewhere classified (principal); Z95.0 Presence of cardiac pacemaker

== ENCOUNTER → 2022-09-12 | Outpatient (CLI) | payer MEDICARE | LOC: M RAD 10:20 | PROVIDERS: ATTEND Nurse Practitioner Adult Health | DX: J90 Pleural effusion, not elsewhere classified (principal) ==

== ENCOUNTER → 2022-12-05 | Outpatient (CLI) | payer MEDICARE | LOC: M WHC 08:29 | PROVIDERS: ATTEND Family Medicine | DX: Z12.31 Encounter for screening mammogram for malignant neoplasm of breast (principal) ==

== ENCOUNTER → 2024-01-03 | Outpatient (CLI) | payer MEDICARE ==
[~2024-01-03] MED LIST changes: +VITA250T27 PO; -VITA250T4 PO
== END ==
LOC: M WHC 06:41
PROVIDERS: ATTEND Family Medicine
DX: Z12.31 Encounter for screening mammogram for malignant neoplasm of breast (principal)

== ENCOUNTER → 2024-01-17 | Outpatient (CLI) | payer MEDICARE | LOC: M RAD 13:53 | PROVIDERS: ATTEND Family Medicine | DX: N17.9 Acute kidney failure, unspecified (principal); R93.41 Abnormal radiologic findings on diagnostic imaging of renal pelvis, ureter, or bladder ==

== ENCOUNTER 2024-12-19 13:52 | Day surgery (SDC) | payer MEDICARE ==
[~2024-12-19] VITALS: Ht 160 cm; Wt 64.4 kg
[~2024-12-19 13:52] MED LIST changes: -AMIO200T49 PO; +AMIO200T54 PO; +BRIM0.2S13; -BRIM1OPD OU; +BRIM5DRO25 OU; +FLEC1TAB; -PRAV40TA2 PO; +PRAV40TA85 PO
[2024-12-19] MEDS ORDERED: MIDAZOLAM INJ 2 MG/2 ML VIAL As Ordered ONE (14:25)
[2024-12-19] MEDS ORDERED: LIDOCAINE 2% 100 MG/5 ML SDV (FOR ANES.) As Ordered ONE (14:25)
[2024-12-19] MEDS: CelecoXIB 400 MG CAP PO ONE (14:29)
[2024-12-19] MEDS: ceFAZolin SOD 2 GM IV ONCE IV ONE (14:39)
[2024-12-19] MEDS: LIDOCAINE W/EPINEPHrine 1% 20 ML VIAL As Ordered ONE (15:01)
[2024-12-19] MEDS: LIDOCAINE 1% SDV 30 ML VIAL As Ordered ONE (15:18)
[2024-12-19 16:00] VITALS: BP 153/75; TEMP 97.9; O2SAT 100
== END 2024-12-19 16:08 | disposition home or self-care (01) ==
LOC: M SDC 13:52
PROVIDERS: ATTEND Surgery
DX: L72.0 Epidermal cyst (principal); I10 Essential (primary) hypertension; I48.91 Unspecified atrial fibrillation; E78.00 Pure hypercholesterolemia, unspecified; Z79.899 Other long term (current) drug therapy; Z95.0 Presence of cardiac pacemaker; Z79.01 Long term (current) use of anticoagulants; Z90.710 Acquired absence of both cervix and uterus; Z87.891 Personal history of nicotine dependence
CPT/HCPCS: 11404; 12032; 88304; J0665; J0688; J2250; J3010

== ENCOUNTER → 2025-02-12 | Outpatient (CLI) | payer MEDICARE | LOC: M WHC 10:02 | PROVIDERS: ATTEND Nurse Practitioner Adult Health | DX: Z12.31 Encounter for screening mammogram for malignant neoplasm of breast (principal); R92.323 Mammographic fibroglandular density, bilateral breasts; R92.1 Mammographic calcification found on diagnostic imaging of breast ==